=== PATIENT | female | born 1960 | race Caucasian/White ===

== ENCOUNTER → 2018-01-11 | Outpatient (CLI) | payer OTHER, BC ==
--- NOTE | 2018-01-11 21:13 | XCELERA REPORT ---
[address] [address] Transthoracic Echocardiogram Report Name: KORY BOWLES Age: 57 yrs Gender: Female : 1960 Patient Status: Outpatient Patient Location: Study Date: 01/11/2018 02:39 PM Reason For Study: LOCALIZED EDEMA Ordering Physician: MELA LINARES Performed By: Gabrielle Harvey Interpretation Summary Poor study, poor endocardial definition of apical views. Normal AV, AV velocity undersampled. No AR normal MV. prob Normal LA Mild PW hypertrophy 13 mm, IVS 9.6mm. No LV enlargement. Prob normal LVEF, stage II LVdiastolic dysfunction. No LV enlargement TR poorly imaged, No Pulm Hypertension RVSP 21. Probably normal RH size. MMode/2D Measurements & Calculations RVDd: 2.8 cm LVIDd: 4.8 cmFS: 39.5 % Ao root diam: 2.7 cm IVSd: 0.64 cm LVIDs: 2.9 cmEDV(Teich): 109.0 ml Ao root area: 5.7 cm2 LVPWd: 1.1 cmESV(Teich): 32.8 ml EF(Teich): 69.9 % LVOT diam: 2.0 cm LVOT area: 3.1 cm2 Doppler Measurements & Calculations MV E max johanna: MV dec slope: Ao V2 max: LV V1 max P.3 cm/sec 86.5 cm/sec 2.4 mmHg MV A max johanna: 426.4 cm/sec2 Ao max PG: LV V1 max: 91.8 cm/sec MV dec time: 3.0 mmHg 77.9 cm/sec MV E/A: 0.91 0.20 sec MAXWELL(V,D): 2.8 cm2 PA V2 max: PI max johanna: TR max johanna: 92.5 cm/sec 152.5 cm/sec 214.8 cm/sec PA max PG: PI max P.3 mmHg TR max P.4 mmHg PI dec slope: 18.4 mmHg 323.8 cm/sec2 Left Ventricle The left ventricle is grossly normal size. The left ventricular ejection fraction is within normal limits. Doppler measurements suggest pseudonormalized left ventricular relaxation, which is associated with grade II/IV or mild to moderate diastolic dysfunction. Regional wall motion abnormalities cannot be excluded due to limited visualization. The left ventricular apex is not well visualized. Right Ventricle The right ventricle is normal in size, thickness and function. Atria Right atrium not well visualized secondary to technical limitations. The left atrial size is normal. The interatrial septum is intact with no evidence for an atrial septal defect. Mitral Valve The mitral valve is normal in structure and function. There is no evidence of mitral valve prolapse. There is no mitral valve stenosis. There is a mild amount of mitral regurgitation. Aortic Valve The aortic valve is normal in structure and functions normally. The aortic valve is trileaflet. There is no aortic valvular vegetation. There is no aortic valve stenosis. No aortic regurgitation is present. Tricuspid Valve The tricuspid valve is not well visualized secondary to technical limitations. Right ventricular systolic pressure is normal. 21 mm Hg. Pulmonic Valve There is a trace or physiologic amount of pulmonic regurgitation. Great Vessels The aortic root is normal size. Effusions Minimal pericardial effusion. I WMSI = 1.13 % Normal = 88 Segments Size X - Cannot 2 - 4 - 1-2 small Interpret 1 - Normal Hypokinetic 3 - AkineticDyskinetic 3-5 moderate 5 - 6-14 large Aneurysmal 15-16 diffuse : MELA LINARES > Kg Pat
== END ==
LOC: SP 14:24
PROVIDERS: ATTEND Family Medicine
DX: R60.0 Localized edema (principal)
CPT/HCPCS: 93306

== ENCOUNTER → 2019-09-27 | Outpatient (CLI) | payer OTHER, BC | LOC: OD 10:46 | PROVIDERS: ATTEND Obstetrics & Gynecology | DX: Z00.00 Encounter for general adult medical examination without abnormal findings (principal) | CPT/HCPCS: 36415; 83880 ==